=== PATIENT | female | born 1970 | race Caucasian/White ===

== ENCOUNTER 2018-03-26 16:03 | Emergency (ER) | payer MEDICARE, MEDICAID ==
[~2018-03-26] VITALS: Ht 157.5 cm; Wt 68.0 kg
[~2018-03-26 16:03] MED LIST: ANTIVERT25 MG PO; CALCIUM; CLEOCIN HCL300 MG PO; DOXYCYCLINE 10100 M1 PO; EMBREL IM; ENBREL 25 MG KI25 M1 SC; FIBER500 MG PO; FLAX SEED OIL1000 MG PO; FOLIC ACID; FOLIC ACID1 MG PO; HYDROCODON-ACE1 EAC8 PO; HYDROCODONE-AP1 EAC6 PO; HYDROXYCHLOROQ200 M1 PO; KEFLEX500 MG PO; MACROBID 100 M100 M2 PO; MEDROLDOSEPACK PO; NORCO 5-325 TA1 EACH PO; ONDANSETRON HCL4 M2 PO; OSELB75 PO; PHENERGAN 25 MG25 M1 PO; RHEUMATREX2.5 MG PO; ROBAXIN 750 MG750 M1 PO; SEROQUEL400 MG PO; TESSALON PERLE100 M1 PO; TRAZODONE 150150 M1 PO; TREXALL10 MG PO; ULTRAM 50MG TAB50 MG PO; VENTOLIN HFA 1818 GM INH; VITAMIN C100 M1 PO; XANAX 0.25 MG0.25 MG PO; ZANTAC 150MG T150 MG PO; ZOFRAN ODT4 MG PO; ZPAK PO
[2018-03-26] MEDS ORDERED: NORCO 5-325 TA1 EACH PO (17:06)
[2018-03-26 17:54] VITALS: BP 131/75
== END 2018-03-26 17:55 | disposition home or self-care (01) ==
LOC: M.ERS 16:03
DX: S93.491A Sprain of other ligament of right ankle, initial encounter (principal); J45.909 Unspecified asthma, uncomplicated; M06.9 Rheumatoid arthritis, unspecified; G43.909 Migraine, unspecified, not intractable, without status migrainosus; Z90.710 Acquired absence of both cervix and uterus; Z88.0 Allergy status to penicillin; Z88.1 Allergy status to other antibiotic agents; Z88.6 Allergy status to analgesic agent; W10.8XXA Fall (on) (from) other stairs and steps, initial encounter; Y93.89 Activity, other specified; Y92.89 Other specified places as the place of occurrence of the external cause; Y99.8 Other external cause status

== ENCOUNTER 2018-11-26 13:34 | Emergency (ER) | payer MEDICARE, MEDICAID ==
[~2018-11-26] VITALS: Ht 154.9 cm; Wt 68.0 kg
[2018-11-26] MEDS ORDERED: ENBREL 25 MG KI25 M1 SUBQ (13:41)
[2018-11-26] MEDS ORDERED: CLEOCIN HCL150 MG PO (14:17)
[2018-11-26] MEDS ORDERED: ACETAMINOPHEN-1 EAC1 PO (14:18)
[2018-11-26 14:21] VITALS: BP 109/64
== END 2018-11-26 14:20 | disposition home or self-care (01) ==
LOC: M.ERS 13:34
DX: S20.161A Insect bite (nonvenomous) of breast, right breast, initial encounter (principal); L08.9 Local infection of the skin and subcutaneous tissue, unspecified; J45.909 Unspecified asthma, uncomplicated; M06.9 Rheumatoid arthritis, unspecified; G43.909 Migraine, unspecified, not intractable, without status migrainosus; Z88.0 Allergy status to penicillin; Z88.2 Allergy status to sulfonamides; Z88.6 Allergy status to analgesic agent; Z87.01 Personal history of pneumonia (recurrent); Z90.710 Acquired absence of both cervix and uterus; Z86.711 Personal history of pulmonary embolism; W57.XXXA Bitten or stung by nonvenomous insect and other nonvenomous arthropods, initial encounter; Y93.89 Activity, other specified; Y92.89 Other specified places as the place of occurrence of the external cause; Y99.8 Other external cause status

== ENCOUNTER 2019-02-17 20:14 | Emergency (ER) | payer MEDICARE, MEDICAID ==
[~2019-02-17] VITALS: Ht 157.5 cm; Wt 68.0 kg
[~2019-02-17 20:14] MED LIST changes: +ACETAMINOPHEN-1 EAC1 PO; +CLEOCIN HCL150 MG PO; +ENBREL 25 MG KI25 M1 SUBQ
[2019-02-17 21:06] LABS: ABSOLUTE BASOPHILS 0.1 thou/uL (0.0-0.2); ABSOLUTE EOSINOPHILS 0.1 thou/uL (0.0-0.7); ABSOLUTE LYMPHOCYTES 3.1 thou/uL (0.8-5.3); ABSOLUTE MONOCYTES 0.9 thou/uL (0.0-1.2); ABSOLUTE NEUTROPHILS 5.9 thou/uL (1.6-8.1); EOSINOPHILS 1.1 %; HEMATOCRIT 44.7 % (37.0-47.0); HEMOGLOBIN 15.2 gm/dL (12.0-15.0); LYMPHOCYTES 30.9 %; MCH 32.2 pg (26.0-34.0); MCHC 33.9 g/dL (28.0-37.0); MPV 9.7 fl. (7.2-11.1); NUCLEATED RBCS 0 /100WBC; PLATELET COUNT* 336 thou/uL (150-400); RBC 4.71 mil/uL (4.20-5.00); RDW-CV 13.5 % (10.5-14.5); WBC 10.2 thou/uL (4.0-11.0)
[2019-02-17 21:11] LABS: ANION GAP 11 mmol/L (7-16); BUN 22 mg/dL (7-18); CHLORIDE 104 mmol/L (98-107); CO2 25 mmol/L (21-32); CREATININE 0.9 mg/dL (0.6-1.3); GLUCOSE 97 mg/dL (70-99); POTASSIUM 4.3 mmol/L (3.5-5.1); SODIUM 140 mmol/L (136-145)
[2019-02-17 21:13] LABS: PROTIME 10.1 Seconds (9.20-11.50)
[2019-02-17 21:20] LABS: ALBUMIN 3.8 g/dL (3.4-5.0); ALKALINE PHOSPHATASE 99 U/L (46-116); LIPASE 174 U/L (73-393); SGOT 27 U/L (15-37); SGPT 47 U/L (30-65); TOTAL BILIRUBIN 0.4 mg/dL (<0.1-1.0); TOTAL PROTEIN 7.9 g/dL (6.4-8.2); TROPONIN-I LEVEL <0.06 ng/mL (<0.06)
[2019-02-17] MEDS ORDERED: NORCO 5-325 TA1 EACH PO (23:16)
[2019-02-17 23:28] VITALS: BP 104/54
--- NOTE | 2019-02-19 16:55 | EKG ---
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
== END 2019-02-17 23:30 | disposition home or self-care (01) ==
LOC: M.ERS 20:14
PROVIDERS: Personal Emergency Response Attendant
DX: R07.89 Other chest pain (principal); R06.02 Shortness of breath; J45.909 Unspecified asthma, uncomplicated; M06.9 Rheumatoid arthritis, unspecified; G43.909 Migraine, unspecified, not intractable, without status migrainosus; Z88.2 Allergy status to sulfonamides; Z88.0 Allergy status to penicillin; Z88.6 Allergy status to analgesic agent; Z87.01 Personal history of pneumonia (recurrent); Z90.710 Acquired absence of both cervix and uterus; Z86.711 Personal history of pulmonary embolism

== ENCOUNTER 2019-05-09 22:33 | Emergency (ER) | payer MEDICARE, MEDICAID ==
[~2019-05-09] VITALS: Ht 157.5 cm; Wt 67.1 kg
[2019-05-09] MEDS ORDERED: METHOTREXATE 22.5 MG (22:40)
[2019-05-09 22:53] LABS: ABSOLUTE EOSINOPHILS 0.2 thou/uL (0.0-0.7); ABSOLUTE LYMPHOCYTES 1.9 thou/uL (0.8-5.3); ABSOLUTE MONOCYTES 0.7 thou/uL (0.0-1.2); ABSOLUTE NEUTROPHILS 2.8 thou/uL (1.6-8.1); BASOPHILS 0.9 %; EOSINOPHILS 3.7 %; HEMATOCRIT 44.4 % (37.0-47.0); HEMOGLOBIN 14.6 gm/dL (12.0-15.0); LYMPHOCYTES 33.8 %; MCH 32.6 pg (26.0-34.0); MCHC 32.9 g/dL (28.0-37.0); NUCLEATED RBCS 0 /100WBC; PLATELET COUNT* 274 thou/uL (150-400); POLYS 49.6 %; RBC 4.49 mil/uL (4.20-5.00); RDW-CV 14.1 % (10.5-14.5); WBC 5.6 thou/uL (4.0-11.0)
[2019-05-09 23:00] LABS: ANION GAP 9 mmol/L (7-16); BUN 10 mg/dL (7-18); CALCIUM 8.2 mg/dL (8.5-10.1); CHLORIDE 104 mmol/L (98-107); CO2 28 mmol/L (21-32); CREATININE 0.8 mg/dL (0.6-1.3); GLUCOSE 120 mg/dL (70-99); POTASSIUM 3.3 mmol/L (3.5-5.1); SODIUM 141 mmol/L (136-145)
[2019-05-09 23:01] LABS: PROTIME 9.9 Seconds (9.20-11.50)
[2019-05-09 23:10] LABS: ALBUMIN 3.5 g/dL (3.4-5.0); ALKALINE PHOSPHATASE 95 U/L (46-116); LIPASE 210 U/L (73-393); NT-PRO BRAIN NAT PEPTIDE 54 pg/mL (<300); SGOT 24 U/L (15-37); SGPT 38 U/L (30-65); TOTAL BILIRUBIN 0.2 mg/dL (<0.1-1.0); TOTAL PROTEIN 7.2 g/dL (6.4-8.2); TROPONIN-I LEVEL <0.06 ng/mL (<0.06)
[2019-05-10 01:10] VITALS: BP 130/82
--- NOTE | 2019-05-10 11:07 | EKG ---
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
== END 2019-05-10 01:11 | disposition home or self-care (01) ==
LOC: M.ERS 22:33
PROVIDERS: Personal Emergency Response Attendant
DX: R07.89 Other chest pain (principal); J45.909 Unspecified asthma, uncomplicated; M06.9 Rheumatoid arthritis, unspecified; G43.909 Migraine, unspecified, not intractable, without status migrainosus; Z98.890 Other specified postprocedural states; Z86.711 Personal history of pulmonary embolism; Z88.0 Allergy status to penicillin; Z88.2 Allergy status to sulfonamides; Z88.6 Allergy status to analgesic agent; Z90.710 Acquired absence of both cervix and uterus

== ENCOUNTER 2019-06-19 12:07 | Emergency (ER) | payer MEDICARE, MEDICAID ==
[~2019-06-19] VITALS: Ht 162.6 cm; Wt 69.4 kg
[~2019-06-19 12:07] MED LIST changes: +METHOTREXATE 22.5 MG
[2019-06-19] MEDS ORDERED: FOLIC ACID1 MG PO (12:18)
[2019-06-19] MEDS ORDERED: ACYCLOVIR 400400 MG PO (12:21)
[2019-06-19] MEDS ORDERED: FIBER 6 TABLE1000 MG PO (12:22)
[2019-06-19] MEDS ORDERED: ULTRAM 50MG TAB50 MG PO (12:23)
[2019-06-19] MEDS ORDERED: TRAZODONE HCL100 MG PO (12:23)
[2019-06-19] MEDS ORDERED: PROVENTIL HFA6.7 G1 INH (12:24)
[2019-06-19] MEDS ORDERED: FLOVENT HFA 4444 MCG INH (12:25)
[2019-06-19] MEDS ORDERED: CLARITIN10 MG PO (12:26)
[2019-06-19 12:35] LABS: ABSOLUTE BASOPHILS 0.1 thou/uL (0.0-0.2); ABSOLUTE EOSINOPHILS 0.2 thou/uL (0.0-0.7); ABSOLUTE LYMPHOCYTES 2.2 thou/uL (0.8-5.3); ABSOLUTE MONOCYTES 0.6 thou/uL (0.0-1.2); ABSOLUTE NEUTROPHILS 3.1 thou/uL (1.6-8.1); BASOPHILS 1.1 %; EOSINOPHILS 2.7 %; HEMATOCRIT 44.6 % (37.0-47.0); LYMPHOCYTES 36.1 %; MCH 32.7 pg (26.0-34.0); MCHC 33.6 g/dL (28.0-37.0); MCV 97.3 fL (80.0-100.0); MONOCYTES 9.5 %; MPV 8.8 fl. (7.2-11.1); NUCLEATED RBCS 0 /100WBC; PLATELET COUNT* 278 thou/uL (150-400); POLYS 50.6 %; RBC 4.59 mil/uL (4.20-5.00); RDW-CV 13.8 % (10.5-14.5); WBC 6.2 thou/uL (4.0-11.0)
[2019-06-19 12:40] LABS: ANION GAP 6 mmol/L (7-16); BUN 11 mg/dL (7-18); CALCIUM 8.5 mg/dL (8.5-10.1); CHLORIDE 104 mmol/L (98-107); CO2 29 mmol/L (21-32); CREATININE 0.7 mg/dL (0.6-1.3); GLUCOSE 89 mg/dL (70-99); SODIUM 139 mmol/L (136-145)
[2019-06-19 12:44] LABS: INR 0.9; PROTIME 9.6 Seconds (9.20-11.50)
[2019-06-19 12:50] LABS: ALBUMIN 3.5 g/dL (3.4-5.0); ALKALINE PHOSPHATASE 94 U/L (46-116); LIPASE 170 U/L (73-393); NT-PRO BRAIN NAT PEPTIDE 57 pg/mL (<300); SGOT 16 U/L (15-37); SGPT 36 U/L (30-65); TOTAL BILIRUBIN 0.3 mg/dL (<0.1-1.0); TOTAL PROTEIN 7.2 g/dL (6.4-8.2); TROPONIN-I LEVEL <0.06 ng/mL (<0.06)
--- NOTE | 2019-06-19 15:02 | EKG ---
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
[2019-06-19] MEDS ORDERED: NORFLEX100 MG PO (15:29)
[2019-06-19 15:35] VITALS: BP 109/60
== END 2019-06-19 15:35 | disposition home or self-care (01) ==
LOC: M.ERS 12:07
PROVIDERS: Personal Emergency Response Attendant
DX: R07.89 Other chest pain (principal); J45.909 Unspecified asthma, uncomplicated; G43.909 Migraine, unspecified, not intractable, without status migrainosus; M06.9 Rheumatoid arthritis, unspecified; Z86.711 Personal history of pulmonary embolism; Z90.710 Acquired absence of both cervix and uterus; Z98.890 Other specified postprocedural states; Z88.6 Allergy status to analgesic agent; Z88.0 Allergy status to penicillin; Z88.2 Allergy status to sulfonamides

== ENCOUNTER 2019-09-24 21:30 | Emergency (ER) | payer MEDICARE, MEDICAID ==
[~2019-09-24] VITALS: Ht 157.5 cm; Wt 70.3 kg
[~2019-09-24 21:30] MED LIST changes: +ACYCLOVIR 400400 MG PO; +CLARITIN10 MG PO; +FIBER 6 TABLE1000 MG PO; +FLOVENT HFA 4444 MCG INH; +NORFLEX100 MG PO; +PROVENTIL HFA6.7 G1 INH; +TRAZODONE HCL100 MG PO
[2019-09-24] MEDS ORDERED: TOPIRAMATE50 MG (21:47)
[2019-09-24] MEDS ORDERED: NAPROXEN500 MG (21:47)
[2019-09-24] MEDS ORDERED: RAYOS5 MG PO (21:48)
[2019-09-24] MEDS ORDERED: MECLIZINE HCL25 M1 (21:48)
[2019-09-24] MEDS ORDERED: PROTONIX40 M2 (21:49)
[2019-09-24] MEDS ORDERED: ESTER-C 500 MG1 EACH (21:49)
[2019-09-24] MEDS ORDERED: XANAX 0.5 MG0.5 M1 (21:50)
[2019-09-24] MEDS ORDERED: ASPIRIN PO (21:51)
[2019-09-24] MEDS ORDERED: HYDROXYZINE HCL25 M2 (21:52)
[2019-09-24] MEDS ORDERED: NORCO 5-325 TA1 EAC1 PO (22:09)
[2019-09-24] MEDS ORDERED: CLEOCIN HCL300 MG PO (22:09)
[2019-09-24] MEDS ORDERED: LIDOCAINE VISC100 ML TOP (22:10)
[2019-09-24 22:48] VITALS: BP 107/71
== END 2019-09-24 22:48 | disposition home or self-care (01) ==
LOC: M.ERS 21:30
DX: N76.2 Acute vulvitis (principal); J45.909 Unspecified asthma, uncomplicated; M06.9 Rheumatoid arthritis, unspecified; G43.909 Migraine, unspecified, not intractable, without status migrainosus; Z86.711 Personal history of pulmonary embolism; Z90.710 Acquired absence of both cervix and uterus; Z88.6 Allergy status to analgesic agent; Z88.2 Allergy status to sulfonamides; Z88.0 Allergy status to penicillin

== ENCOUNTER 2019-09-26 16:49 | Emergency (ER) | payer MEDICARE, MEDICAID ==
[~2019-09-26] VITALS: Ht 157.5 cm; Wt 70.3 kg
[~2019-09-26 16:49] MED LIST changes: +ASPIRIN PO; +ESTER-C 500 MG1 EACH; +HYDROXYZINE HCL25 M2; +LIDOCAINE VISC100 ML TOP; +MECLIZINE HCL25 M1; +NAPROXEN500 MG; +NORCO 5-325 TA1 EAC1 PO; +PROTONIX40 M2; +RAYOS5 MG PO; +TOPIRAMATE50 MG; +XANAX 0.5 MG0.5 M1
[2019-09-26 18:23] VITALS: BP 108/82
== END 2019-09-26 18:23 | disposition home or self-care (01) ==
LOC: M.ERS 16:49
DX: N76.4 Abscess of vulva (principal); J45.909 Unspecified asthma, uncomplicated; M06.9 Rheumatoid arthritis, unspecified; G43.909 Migraine, unspecified, not intractable, without status migrainosus; Z86.711 Personal history of pulmonary embolism; Z90.710 Acquired absence of both cervix and uterus; Z88.6 Allergy status to analgesic agent; Z88.2 Allergy status to sulfonamides; Z88.0 Allergy status to penicillin

== ENCOUNTER 2020-02-17 20:21 | Emergency (ER) | payer MEDICARE, MEDICAID ==
[~2020-02-17] VITALS: Ht 157.5 cm; Wt 68.0 kg
[2020-02-17] MEDS ORDERED: BENTYL 10 MG CA10 M1 PO (20:26)
[2020-02-17 21:30] LABS: URINE BILIRUBIN NEGATIVE (Negative); URINE BLOOD NEGATIVE (Negative); URINE CLARITY CLEAR; URINE COLOR YELLOW; URINE GLUCOSE-RANDOM NEGATIVE (Negative); URINE KETONES NEGATIVE (Negative); URINE LEUKOCYTES-REFLEX NEGATIVE (Negative); URINE NITRITE-REFLEX NEGATIVE (Negative); URINE PROTEIN NEGATIVE (Negative); URINE UROBILINOGEN 0.2 E.U./dl (0.2-1.0)
[2020-02-17 21:38] LABS: AMP/METHAMP Negative (Negative); BARBITURATES Negative (Negative); BENZODIAZEPINES Negative (Negative); COCAINE Negative (Negative); METHADONE Negative (Negative); OPIATES Negative (Negative); PCP Negative (Negative); THC Negative (Negative)
[2020-02-17 21:56] LABS: ABSOLUTE BASOPHILS 0.1 thou/uL (0.0-0.2); ABSOLUTE EOSINOPHILS 0.1 thou/uL (0.0-0.7); ABSOLUTE LYMPHOCYTES 2.1 thou/uL (0.8-5.3); ABSOLUTE MONOCYTES 0.8 thou/uL (0.0-1.2); ABSOLUTE NEUTROPHILS 5.2 thou/uL (1.6-8.1); BASOPHILS 1.1 %; EOSINOPHILS 0.7 %; HEMATOCRIT 39.3 % (37.0-47.0); HEMOGLOBIN 13.5 gm/dL (12.0-15.0); LYMPHOCYTES 25.5 %; MCH 34.4 pg (26.0-34.0); MCHC 34.5 g/dL (28.0-37.0); MCV 99.7 fL (80.0-100.0); MONOCYTES 9.3 %; MPV 8.8 fl. (7.2-11.1); NUCLEATED RBCS 0 /100WBC; PLATELET COUNT* 278 thou/uL (150-400); POLYS 63.4 %; RBC 3.94 mil/uL (4.20-5.00); RDW-CV 13.6 % (10.5-14.5); WBC 8.2 thou/uL (4.0-11.0)
[2020-02-17 22:05] LABS: CALCIUM 8.4 mg/dL (8.5-10.1); CREATININE 0.9 mg/dL (0.6-1.3); POTASSIUM 3.8 mmol/L (3.5-5.1)
[2020-02-17 22:15] LABS: ALBUMIN 3.6 g/dL (3.4-5.0); TOTAL BILIRUBIN 0.3 mg/dL (<0.1-1.0); TOTAL PROTEIN 7.5 g/dL (6.4-8.2)
[2020-02-17] MEDS ORDERED: FLEXERIL PO (23:19)
[2020-02-17] MEDS ORDERED: HYDROCODON-ACE1 EAC8 PO (23:19)
[2020-02-17 23:44] VITALS: BP 145/89
[2020-02-17] MEDS ORDERED: REGLAN 10 MG TA10 MG PO (23:50)
== END 2020-02-17 23:45 | disposition home or self-care (01) ==
LOC: M.ERS 20:21
PROVIDERS: Emergency Medicine
DX: M54.2 Cervicalgia (principal); M54.6 Pain in thoracic spine; M25.552 Pain in left hip; M62.838 Other muscle spasm; R07.89 Other chest pain; R10.32 Left lower quadrant pain; J45.909 Unspecified asthma, uncomplicated; M06.9 Rheumatoid arthritis, unspecified; G43.909 Migraine, unspecified, not intractable, without status migrainosus; Z90.710 Acquired absence of both cervix and uterus; Z86.711 Personal history of pulmonary embolism; V89.2XXA Person injured in unspecified motor-vehicle accident, traffic, initial encounter; Y93.89 Activity, other specified; Y92.89 Other specified places as the place of occurrence of the external cause; Y99.8 Other external cause status

== ENCOUNTER 2020-09-14 17:34 | Emergency (ER) | payer MEDICARE, MEDICAID ==
[~2020-09-14] VITALS: Ht 157.5 cm; Wt 63.5 kg
[~2020-09-14 17:34] MED LIST changes: +BENTYL 10 MG CA10 M1 PO; +FLEXERIL PO; +REGLAN 10 MG TA10 MG PO
[2020-09-14] MEDS ORDERED: DOXYCYCLINE 10100 MG PO (17:54)
[2020-09-14] MEDS ORDERED: NORCO 5-325 TA1 EAC2 PO (18:16)
[2020-09-14] MEDS ORDERED: CENTANY30 GM TOP (18:24)
[2020-09-14 18:26] VITALS: BP 140/78
== END 2020-09-14 18:27 | disposition home or self-care (01) ==
LOC: M.ERS 17:34
DX: L02.215 Cutaneous abscess of perineum (principal); J45.909 Unspecified asthma, uncomplicated; G43.909 Migraine, unspecified, not intractable, without status migrainosus; M06.9 Rheumatoid arthritis, unspecified; Z88.6 Allergy status to analgesic agent; Z88.0 Allergy status to penicillin; Z88.2 Allergy status to sulfonamides; Z90.710 Acquired absence of both cervix and uterus; Z87.01 Personal history of pneumonia (recurrent); Z86.711 Personal history of pulmonary embolism

== ENCOUNTER 2021-04-27 20:02 | Emergency (ER) | payer MEDICARE, MEDICAID ==
[~2021-04-27] VITALS: Ht 157.5 cm; Wt 67.1 kg
[~2021-04-27 20:02] MED LIST changes: +CENTANY30 GM TOP; +DOXYCYCLINE 10100 MG PO; +NORCO 5-325 TA1 EAC2 PO
[2021-04-27 21:24] VITALS: BP 129/79
== END 2021-04-27 21:24 | disposition left against medical advice (07) ==
LOC: M.ERS 20:02
DX: M25.572 Pain in left ankle and joints of left foot (principal); Z53.21 Procedure and treatment not carried out due to patient leaving prior to being seen by health care provider